=== PATIENT | female | born 1935 | race Two or more races ===

== ENCOUNTER 2022-01-27 13:53 | Inpatient (IN) | payer MEDICARE ==
[~2022-01-27] VITALS: Ht 157.5 cm; Wt 71.9 kg
[~2022-01-27 13:53] MED LIST: ACET650S24 PO; ALPR-707 PO; CEFX2I IV; DEXA4 PO; FURO40 PO; INSU100V SQ; METO25XL PO; MULT-1239 PO; WARF1TAB9 PO
[2022-01-27 14:24] LABS: BASOPHILS % (AUTO) 1.4 % (0.0-2.0); EOSINOPHILS % (AUTO) 0.9 % (1.0-6.0); HEMATOCRIT 35.8 % (36-46); HEMOGLOBIN 11.5 g/dL (12.0-16.0); LYMPHOCYTES # (AUTO) 1.4 K/uL (1.0-4.8); LYMPHOCYTES % (AUTO) 10.8 % (22.0-44.0); MEAN CORPUSCULAR HEMOGLOBIN 27.2 pg (26.0-34.0); MEAN CORPUSCULAR VOLUME 85 fL (80-100); MONOCYTES # (AUTO) 1.3 K/uL (0.1-1.0); MONOCYTES % (AUTO) 9.6 % (2.0-9.0); NEUTROPHILS # (AUTO) 10.1 K/uL (1.8-7.7); NEUTROPHILS % (AUTO) 77.3 % (40.0-70.0); RED BLOOD CELL COUNT(AUTO) 4.21 MIL/uL (4.00-5.20)
[2022-01-27 14:35] LABS: ALANINE AMINOTRANSFERASE 22 U/L (12-78); ALKALINE PHOSPHATASE 152 U/L (46-116); ANION GAP 1 mmol/L (8-16); ASPARTATE AMINOTRANSFERASE 21 U/L (15-37); BILIRUBIN,TOTAL 0.7 mg/dL (0.1-1.0); CALCIUM, TOTAL 8.2 mg/dL (8.8-10.5); CARBON DIOXIDE 34 mmol/L (22-29); CHLORIDE 101 mmol/L (98-107); CREATININE 0.57 mg/dL (0.60-1.30); GLUCOSE,RANDOM 143 mg/dL (70-110); SODIUM SERUM 136 mmol/L (136-145); UREA NITROGEN, BLOOD 19 mg/dL (7-18)
[2022-01-27 14:38] LABS: GLOMERULAR FILTR. RATE CALC > 60 mL/min (>60); POTASSIUM 2.6 mmol/L (3.5-5.1)
[2022-01-27 14:40] LABS: INR 3.1 (0.9-1.1); PROTHROMBIN TIME 31.8 SEC (9.4-11.6)
[2022-01-27 14:44] LABS: PLATELET COUNT (AUTO) 83 K/uL (150-450)
[2022-01-27] MEDS ORDERED: ASPIRIN 81 MG CHEWABLE TABLET PO ONE (15:00)
[2022-01-27] MEDS ORDERED: ASPIRIN 300 MG RECTAL SUPPOSITORY PR ONE (15:30)
[2022-01-27 15:32] LABS: APPEARANCE,URINE HAZY (CLEAR); BILIRUBIN,URINE NEGATIVE (NEGATIVE); GLUCOSE, URINE (UA) NEGATIVE (NEGATIVE); KETONES,URINE NEGATIVE (NEGATIVE); LEUKOCYTE ESTERASE ,URINE LARGE (NEGATIVE); NITRATE,URINE NEGATIVE (NEGATIVE); OCCULT BLOOD,URINE TRACE (NEGATIVE); PH,URINE 6.5 (5.0-8.0); PROTEIN,URINE TRACE mg/dL (NEGATIVE); SPECIFIC GRAVITIY, URINE 1.027 (1.003-1.030); UROBILINOGEN,URINE <=1.0 mg/dL (<=1.0)
[2022-01-27] MEDS: POTASSIUM CHL 10 MEQ/WATER 50 ML IV SCH ×2 (15:36→16:10)
[2022-01-27] MEDS ORDERED: 0.9% SODIUM CHLORIDE 10 ML SYRINGE IVP PRN (15:45)
[2022-01-27] MEDS ORDERED: ACETAMINOPHEN 325 MG TABLET PO PRN ×2 (15:45→19:30)
[2022-01-27] MEDS ORDERED: ONDANSETRON HCL 4 MG/2 ML VIAL IVP PRN ×2 (15:45→19:30)
[2022-01-27 15:47] LABS: BACTERIA,URINE Moderate /HPF (None Seen); RBC,URINE 0-2 /HPF (0-2); SQUAMOUS EPITHELIAL CELL,UR Rare /LPF (None Seen); WBC,URINE 51-100 /HPF (0-5); YEAST,URINE Moderate /HPF (None Seen)
[2022-01-27] MEDS ORDERED: MAGNESIUM SULFATE 2 GM/WATER 50 ML IV ONE (16:00)
[2022-01-27] MEDS ORDERED: PIPERACILLIN/TAZO 3.375 GM/D5W 50 ML IV SCH (16:00)
[2022-01-27 16:10] LABS: AMPHET/METH SCREEN,URINE NEGATIVE (NEGATIVE); BARBITURATE SCREEN, URINE NEGATIVE (NEGATIVE); BENZODIAZEPINES SCREEN,URINE NEGATIVE (NEGATIVE); CANNABINOID SCREEN,URINE NEGATIVE (NEGATIVE); COCAINE SCREEN,URINE NEGATIVE (NEGATIVE); METHADONE SCREEN, URINE NEGATIVE (NEGATIVE); PHENCYCLIDINE SCREEN,URINE NEGATIVE (NEGATIVE)
[2022-01-27 16:11] LABS: OPIATE SCREEN,URINE NEGATIVE (NEGATIVE)
[2022-01-27 16:41] LABS: COVID AG,FIA SOURCE NASOPHARYNGEAL
[2022-01-27 17:27] LABS: INFLUENZA TYPE A NEGATIVE FOR TYPE A (NEGATIVE); INFLUENZA TYPE B NEGATIVE FOR TYPE B (NEGATIVE)
[2022-01-27] MEDS ORDERED: BISACODYL 10 MG RECTAL RECTAL SUPPOSITORY PR PRN (19:30)
[2022-01-27] MEDS ORDERED: MAGNESIUM HYDROXIDE SUSPENSION 30 ML UDCUP PO PRN (19:30)
[2022-01-27] MEDS ORDERED: ZOLPIDEM TARTRATE 5 MG TABLET PO PRN (19:30)
[2022-01-27] MEDS ORDERED: DEXTROSE 50%-WATER 25 GM/50 ML SYRINGE IVP PRN (19:45)
[2022-01-27 20:46] VITALS: BP 137/57
[2022-01-27] MEDS: DOCUSATE SODIUM 100 MG CAPSULE PO SCH (21:00)
[2022-01-27] MEDS: FUROSEMIDE 40 MG TABLET PO SCH (21:00)
[2022-01-27] MEDS: METOPROLOL SUCCINATE 25 MG ER TABLET PO SCH (21:00)
[2022-01-27] MEDS: CefTRIAXone 1 GM/DEXTROSE 50 ML IV SCH (22:28)
[2022-01-28] MEDS ORDERED: HEPARIN SODIUM,PORCINE 5,000 UNITS/ML VIAL SQ SCH
[2022-01-28 00:11] VITALS: BP 123/73
[2022-01-28] MEDS ORDERED: DIGOXIN 250 MCG/ML 2 ML AMP IVP ONE (00:30)
[2022-01-28 00:37] LABS: GLUCOMETER DEV NAME(LOC) 5N.1C; GLUCOSE,POINT OF CARE 89 MG/DL (70-110)
[2022-01-28 05:17] VITALS: BP 118/54
[2022-01-28 06:27] LABS: ANION GAP 4 mmol/L (8-16); CALCIUM, TOTAL 8.6 mg/dL (8.8-10.5); CARBON DIOXIDE 32 mmol/L (22-29); CHLORIDE 103 mmol/L (98-107); CREATININE 0.62 mg/dL (0.60-1.30); GLUCOSE,RANDOM 178 mg/dL (70-110); INR 2.8 (0.9-1.1); POTASSIUM 3.7 mmol/L (3.5-5.1); PROTHROMBIN TIME 28.2 SEC (9.4-11.6); SODIUM SERUM 139 mmol/L (136-145); UREA NITROGEN, BLOOD 21 mg/dL (7-18)
[2022-01-28 06:31] LABS: GLOMERULAR FILTR. RATE CALC > 60 mL/min (>60)
[2022-01-28 07:08] LABS: BASOPHILS % (AUTO) 0.4 % (0.0-2.0); EOSINOPHILS % (AUTO) 0.8 % (1.0-6.0); HEMATOCRIT 36.1 % (36-46); LYMPHOCYTES # (AUTO) 1.5 K/uL (1.0-4.8); LYMPHOCYTES % (AUTO) 14.5 % (22.0-44.0); MEAN CORPUSCULAR HEMOGLOBIN 28.3 pg (26.0-34.0); MEAN CORPUSCULAR HGB CONC 33.3 G/dL (31.0-37.0); MEAN CORPUSCULAR VOLUME 85 fL (80-100); MONOCYTES # (AUTO) 0.8 K/uL (0.1-1.0); MONOCYTES % (AUTO) 7.6 % (2.0-9.0); NEUTROPHILS # (AUTO) 7.8 K/uL (1.8-7.7); NEUTROPHILS % (AUTO) 76.7 % (40.0-70.0); PLATELET COUNT (AUTO) 91 K/uL (150-450); RED BLOOD CELL COUNT(AUTO) 4.25 MIL/uL (4.00-5.20); RED CELL DISTRIBUTION WIDTH 21.9 % (11.5-14.5)
[2022-01-28 07:34] LABS: CHOL/HDL RATIO 2.7 (3.9-5.7); CHOLESTEROL 103 mg/dL (131-200); HDL CHOLESTEROL 38 mg/dL (40-60); LDL CHOL (CALC.) 53 mg/dL (0-130); TRIGLYCERIDES 58 mg/dL (15-150)
[2022-01-28 07:57] VITALS: BP 124/57
[2022-01-28] MEDS: FUROSEMIDE 40 MG TABLET PO SCH ×2 (08:40→21:50)
[2022-01-28] MEDS: DOCUSATE SODIUM 100 MG CAPSULE PO SCH ×2 (08:40→21:50)
[2022-01-28] MEDS: METOPROLOL SUCCINATE 25 MG ER TABLET PO SCH ×2 (08:40→21:50)
[2022-01-28] MEDS: PANTOPRAZOLE SODIUM 40 MG DR TABLET PO SCH (08:40)
[2022-01-28] MEDS: INSULIN LISPRO 100 UNITS/ML SQ PRN ×3 (11:50→22:00)
[2022-01-28 11:52] VITALS: BP 137/59
[2022-01-28 11:56] LABS: GLUCOMETER DEV NAME(LOC) 5N.1C; GLUCOSE,POINT OF CARE 385 MG/DL (70-110)
[2022-01-28 15:50] VITALS: BP 134/60
[2022-01-28] MEDS: WARFARIN SODIUM 1 MG TABLET PO SCH (17:10)
[2022-01-28 17:32] LABS: GLUCOMETER DEV NAME(LOC) 5N.1C; GLUCOSE,POINT OF CARE 347 MG/DL (70-110)
[2022-01-28 20:07] LABS: GLUCOMETER DEV NAME(LOC) 5S.1B; GLUCOSE,POINT OF CARE 161 MG/DL (70-110)
[2022-01-28 21:34] VITALS: BP 131/69
[2022-01-28] MEDS: CefTRIAXone 1 GM/DEXTROSE 50 ML IV SCH (21:49)
[2022-01-29 01:54] VITALS: BP 141/68
[2022-01-29 02:16] LABS: GLUCOMETER DEV NAME(LOC) 5S.1B; GLUCOSE,POINT OF CARE 252 MG/DL (70-110)
[2022-01-29] MEDS ORDERED: ALPRAZolam 0.5 MG TABLET PO PRN (03:45)
[2022-01-29] MEDS: INSULIN LISPRO 100 UNITS/ML SQ PRN ×4 (06:17→20:51)
[2022-01-29 06:59] LABS: BASOPHILS % (AUTO) 0.8 % (0.0-2.0); EOSINOPHILS % (AUTO) 1.5 % (1.0-6.0); HEMATOCRIT 33.3 % (36-46); HEMOGLOBIN 11.1 g/dL (12.0-16.0); LYMPHOCYTES # (AUTO) 1.5 K/uL (1.0-4.8); LYMPHOCYTES % (AUTO) 15.2 % (22.0-44.0); MEAN CORPUSCULAR HEMOGLOBIN 28.2 pg (26.0-34.0); MEAN CORPUSCULAR HGB CONC 33.3 G/dL (31.0-37.0); MEAN CORPUSCULAR VOLUME 85 fL (80-100); MONOCYTES # (AUTO) 0.7 K/uL (0.1-1.0); MONOCYTES % (AUTO) 6.5 % (2.0-9.0); NEUTROPHILS # (AUTO) 7.7 K/uL (1.8-7.7); PLATELET COUNT (AUTO) 97 K/uL (150-450); RED BLOOD CELL COUNT(AUTO) 3.93 MIL/uL (4.00-5.20); RED CELL DISTRIBUTION WIDTH 21.1 % (11.5-14.5)
[2022-01-29 07:08] LABS: INR 2.9 (0.9-1.1); PROTHROMBIN TIME 29.6 SEC (9.4-11.6)
[2022-01-29 07:15] LABS: ANION GAP 3 mmol/L (8-16); CALCIUM, TOTAL 8.4 mg/dL (8.8-10.5); CARBON DIOXIDE 31 mmol/L (22-29); CHLORIDE 98 mmol/L (98-107); CREATININE 0.63 mg/dL (0.60-1.30); GLUCOSE,RANDOM 265 mg/dL (70-110); POTASSIUM 3.7 mmol/L (3.5-5.1); SODIUM SERUM 132 mmol/L (136-145); UREA NITROGEN, BLOOD 21 mg/dL (7-18)
[2022-01-29 07:20] LABS: GLOMERULAR FILTR. RATE CALC > 60 mL/min (>60)
[2022-01-29 08:09] VITALS: BP 132/64
[2022-01-29] MEDS: PANTOPRAZOLE SODIUM 40 MG DR TABLET PO SCH (09:32)
[2022-01-29] MEDS: METOPROLOL SUCCINATE 25 MG ER TABLET PO SCH ×2 (09:32→20:40)
[2022-01-29] MEDS: DOCUSATE SODIUM 100 MG CAPSULE PO SCH ×2 (09:32→20:40)
[2022-01-29] MEDS: FUROSEMIDE 40 MG TABLET PO SCH ×2 (09:32→20:40)
[2022-01-29 11:19] VITALS: BP 130/66
[2022-01-29 12:17] LABS: GLUCOMETER DEV NAME(LOC) 5S.2B; GLUCOSE,POINT OF CARE 275 MG/DL (70-110)
[2022-01-29 13:01] LABS: GLUCOMETER DEV NAME(LOC) 5N.1C; GLUCOSE,POINT OF CARE 285 MG/DL (70-110)
[2022-01-29] MEDS: WARFARIN SODIUM 1 MG TABLET PO SCH (16:25)
[2022-01-29 20:25] VITALS: BP 134/67
[2022-01-29] MEDS: CefTRIAXone 1 GM/DEXTROSE 50 ML IV SCH (20:40)
[2022-01-29] MEDS ORDERED: SODIUM CHLORIDE 0.9% 250 ML IV ONE (21:00)
[2022-01-30] VITALS (7 sets, daily range): BP systolic 114–131; BP diastolic 55–67
[2022-01-30 05:41] LABS: GLUCOMETER DEV NAME(LOC) 5N.1C; GLUCOSE,POINT OF CARE 270 MG/DL (70-110)
[2022-01-30 05:41] LABS: GLUCOMETER DEV NAME(LOC) 5N.1C; GLUCOSE,POINT OF CARE 253 MG/DL (70-110)
[2022-01-30 05:56] LABS: BASOPHILS % (AUTO) 0.8 % (0.0-2.0); EOSINOPHILS % (AUTO) 1.8 % (1.0-6.0); HEMATOCRIT 33.1 % (36-46); LYMPHOCYTES # (AUTO) 1.1 K/uL (1.0-4.8); LYMPHOCYTES % (AUTO) 12.7 % (22.0-44.0); MEAN CORPUSCULAR HEMOGLOBIN 28.2 pg (26.0-34.0); MEAN CORPUSCULAR HGB CONC 33.4 G/dL (31.0-37.0); MEAN CORPUSCULAR VOLUME 84 fL (80-100); MONOCYTES # (AUTO) 0.5 K/uL (0.1-1.0); MONOCYTES % (AUTO) 5.6 % (2.0-9.0); NEUTROPHILS # (AUTO) 7.1 K/uL (1.8-7.7); NEUTROPHILS % (AUTO) 79.1 % (40.0-70.0); PLATELET COUNT (AUTO) 119 K/uL (150-450); RED BLOOD CELL COUNT(AUTO) 3.92 MIL/uL (4.00-5.20); RED CELL DISTRIBUTION WIDTH 20.9 % (11.5-14.5)
[2022-01-30] MEDS: INSULIN LISPRO 100 UNITS/ML SQ PRN ×4 (06:02→20:56)
[2022-01-30 06:07] LABS: INR 2.9 (0.9-1.1); PROTHROMBIN TIME 29.8 SEC (9.4-11.6)
[2022-01-30 06:10] LABS: ANION GAP 4 mmol/L (8-16); CALCIUM, TOTAL 8.4 mg/dL (8.8-10.5); CARBON DIOXIDE 31 mmol/L (22-29); CHLORIDE 99 mmol/L (98-107); CREATININE 0.62 mg/dL (0.60-1.30); GLUCOSE,RANDOM 264 mg/dL (70-110); POTASSIUM 3.1 mmol/L (3.5-5.1); SODIUM SERUM 134 mmol/L (136-145); UREA NITROGEN, BLOOD 21 mg/dL (7-18)
[2022-01-30 06:13] LABS: GLOMERULAR FILTR. RATE CALC > 60 mL/min (>60)
[2022-01-30 07:21] LABS: GLUCOMETER DEV NAME(LOC) 5N.1C; GLUCOSE,POINT OF CARE 242 MG/DL (70-110)
[2022-01-30] MEDS: FUROSEMIDE 40 MG TABLET PO SCH ×2 (08:53→20:50)
[2022-01-30] MEDS: DOCUSATE SODIUM 100 MG CAPSULE PO SCH ×2 (08:54→20:51)
[2022-01-30] MEDS: PANTOPRAZOLE SODIUM 40 MG DR TABLET PO SCH (08:54)
[2022-01-30] MEDS: METOPROLOL SUCCINATE 25 MG ER TABLET PO SCH ×2 (08:54→20:50)
[2022-01-30] MEDS ORDERED: POTASSIUM CHLORIDE 10% 40 MEQ/30 ML LIQUID UDCUP PO ONE (11:45)
[2022-01-30] MEDS ORDERED: MAGNESIUM OXIDE 400 MG TABLET PO ONE ×2 (11:45→17:15)
[2022-01-30 15:05] LABS: MAGNESIUM 1.2 mg/dL (1.80-2.40); POTASSIUM 4.5 mmol/L (3.5-5.1)
[2022-01-30] MEDS: WARFARIN SODIUM 1 MG TABLET PO SCH (18:20)
[2022-01-30] MEDS: CefTRIAXone 1 GM/DEXTROSE 50 ML IV SCH (20:51)
[2022-01-31] MEDS: INSULIN LISPRO 100 UNITS/ML SQ PRN ×2 (06:16→12:38)
[2022-01-31 06:32] VITALS: BP 150/69
[2022-01-31] MEDS ORDERED: MAGNESIUM OXIDE 400 MG TABLET PO ONE (07:45)
[2022-01-31 08:13] VITALS: BP 128/48
[2022-01-31] MEDS: METOPROLOL SUCCINATE 25 MG ER TABLET PO SCH (09:19)
[2022-01-31] MEDS: PANTOPRAZOLE SODIUM 40 MG DR TABLET PO SCH (09:19)
[2022-01-31] MEDS: FUROSEMIDE 40 MG TABLET PO SCH (09:19)
[2022-01-31] MEDS: DOCUSATE SODIUM 100 MG CAPSULE PO SCH (09:20)
[2022-01-31 11:29] VITALS: BP 132/52
[2022-01-31 15:13] VITALS: BP 126/55
[2022-01-31 15:35] LABS: COVID AG,FIA SOURCE NASOPHARYNGEAL
[2022-01-31] MEDS: WARFARIN SODIUM 1 MG TABLET PO SCH (16:24)
[2022-01-31 19:41] LABS: GLUCOMETER DEV NAME(LOC) 5N.1C; GLUCOSE,POINT OF CARE 234 MG/DL (70-110)
[2022-01-31 19:41] LABS: GLUCOMETER DEV NAME(LOC) 5N.1C; GLUCOSE,POINT OF CARE 261 MG/DL (70-110)
[2022-01-31 19:41] LABS: GLUCOMETER DEV NAME(LOC) 5N.1C; GLUCOSE,POINT OF CARE 291 MG/DL (70-110)
[2022-01-31 19:42] LABS: GLUCOMETER DEV NAME(LOC) 5N.1C; GLUCOSE,POINT OF CARE 321 MG/DL (70-110)
[2022-01-31 19:42] LABS: GLUCOMETER DEV NAME(LOC) 5N.1C; GLUCOSE,POINT OF CARE 192 MG/DL (70-110)
== END 2022-01-31 16:55 | DRG 70 ==
LOC: EMS 13:54 → 5N 18:18
PROVIDERS: ADMIT Internal Medicine; ATTEND Internal Medicine
DX: G93.41 Metabolic encephalopathy (principal); E43 Unspecified severe protein-calorie malnutrition; U07.1 COVID-19; I50.32 Chronic diastolic (congestive) heart failure; N39.0 Urinary tract infection, site not specified; R78.81 Bacteremia; E87.6 Hypokalemia; E11.9 Type 2 diabetes mellitus without complications; F41.9 Anxiety disorder, unspecified; I48.91 Unspecified atrial fibrillation; E83.42 Hypomagnesemia; Z66 Do not resuscitate; F29 Unspecified psychosis not due to a substance or known physiological condition; J44.9 Chronic obstructive pulmonary disease, unspecified; T38.0X5A Adverse effect of glucocorticoids and synthetic analogues, initial encounter; F32.A Depression, unspecified; Z95.3 Presence of xenogenic heart valve; Z86.73 Personal history of transient ischemic attack (TIA), and cerebral infarction without residual deficits; Z68.29 Body mass index [BMI] 29.0-29.9, adult; Z79.01 Long term (current) use of anticoagulants; Y92.89 Other specified places as the place of occurrence of the external cause; Z79.899 Other long term (current) drug therapy; Z88.5 Allergy status to narcotic agent; Z88.8 Allergy status to other drugs, medicaments and biological substances; M25.461 Effusion, right knee; M17.11 Unilateral primary osteoarthritis, right knee
CPT/HCPCS: 70496; 70498; 71045; 80048; 80053; 80061; 81001; 82948; 82962; 83735; 84132; 84484; 85025; 85610; 85730; 86850; 86900; 86901; 87040; 87081; 87086; 87186; 87804; 92610; 93005; 97110; 97163; 97530; 99291; J0696; J1160; J2543; J3475; J3480; J7050; 36415-L1; 36415-TC; 70450; 70450-TC

== ENCOUNTER 2022-02-19 20:03 | Inpatient (IN) | payer MEDICARE ==
[~2022-02-19] VITALS: Ht 149.9 cm; Wt 49.2 kg
[2022-02-19] MEDS ORDERED: SODIUM CHLORIDE 0.9% 1,000 ML IV ONE (22:45)
[2022-02-19 23:54] LABS: HEMOGLOBIN 11.2 g/dL (12.0-16.0); MONOCYTES # (AUTO) 0.9 K/uL (0.1-1.0); MONOCYTES % (AUTO) 5.8 % (2.0-9.0)
[2022-02-19 23:56] LABS: ANION GAP 9 mmol/L (8-16); CALCIUM, TOTAL 8.9 mg/dL (8.8-10.5); CARBON DIOXIDE 31 mmol/L (22-29); CHLORIDE 98 mmol/L (98-107); GLUCOSE,RANDOM 306 mg/dL (70-110); POTASSIUM 3.1 mmol/L (3.5-5.1); SODIUM SERUM 138 mmol/L (136-145); UREA NITROGEN, BLOOD 19 mg/dL (7-18)
[2022-02-19 23:58] LABS: GLOMERULAR FILTR. RATE CALC > 60 mL/min (>60)
[2022-02-20] LABS: BASOPHILS % (AUTO) 0.4 % (0.0-2.0); EOSINOPHILS % (AUTO) 0.2 % (1.0-6.0); HEMATOCRIT 35.7 % (36-46); LYMPHOCYTES % (AUTO) 6.3 % (22.0-44.0); MEAN CORPUSCULAR HEMOGLOBIN 26.5 pg (26.0-34.0); MEAN CORPUSCULAR HGB CONC 31.4 G/dL (31.0-37.0); MEAN CORPUSCULAR VOLUME 84 fL (80-100); NEUTROPHILS # (AUTO) 13.2 K/uL (1.8-7.7); PLATELET COUNT (AUTO) 278 K/uL (150-450); RED BLOOD CELL COUNT(AUTO) 4.23 MIL/uL (4.00-5.20); RED CELL DISTRIBUTION WIDTH 18.3 % (11.5-14.5)
[2022-02-20] MEDS ORDERED: ONDANSETRON HCL 4 MG/2 ML VIAL IVP PRN
[2022-02-20 00:02] LABS: ALANINE AMINOTRANSFERASE 12 U/L (12-78); ALBUMIN 2.6 g/dL (3.4-5.0); ALKALINE PHOSPHATASE 149 U/L (46-116); ASPARTATE AMINOTRANSFERASE 21 U/L (15-37); BILIRUBIN,TOTAL 0.4 mg/dL (0.1-1.0); LIPASE 222 U/L (73-393); TOTAL PROTEIN, SERUM 6.9 g/dL (6.4-8.2)
[2022-02-20 00:04] LABS: LACTIC ACID 1.4 mmol/L (0.4-2.0)
[2022-02-20] MEDS: HEPARIN SODIUM,PORCINE 5,000 UNITS/ML VIAL SQ SCH ×3 (00:05→15:49)
[2022-02-20 00:07] LABS: NEUTROPHILS % (AUTO) 87.3 % (40.0-70.0)
[2022-02-20 00:17] LABS: B-TYPE NATRIURETIC PEPTIDE 644 pg/mL (0-100)
[2022-02-20] MEDS ORDERED: SODIUM CHLORIDE 0.9% 250 ML IV ONE (01:00)
[2022-02-20 01:04] LABS: COVID AG,FIA SOURCE NASOPHARYNGEAL
[2022-02-20 01:25] LABS: INR 2.5 (0.9-1.1)
[2022-02-20] MEDS ORDERED: LORazepam 2 MG/ML VIAL IVP ONE (01:45)
[2022-02-20] MEDS ORDERED: CefTRIAXone SODIUM 2 GM in DEXTROSE 5%-WATER 50 ML IV SCH (02:00)
[2022-02-20] MEDS ORDERED: IOHEXOL 350 MG/ML 100 ML VIAL ONE (02:32)
[2022-02-20 02:38] LABS: APPEARANCE,URINE CLEAR (CLEAR); BILIRUBIN,URINE NEGATIVE (NEGATIVE); GLUCOSE, URINE (UA) >=1000 mg/dL (NEGATIVE); KETONES,URINE TRACE mg/dL (NEGATIVE); LEUKOCYTE ESTERASE ,URINE LARGE (NEGATIVE); NITRATE,URINE NEGATIVE (NEGATIVE); OCCULT BLOOD,URINE NEGATIVE (NEGATIVE); PROTEIN,URINE NEGATIVE (NEGATIVE); SPECIFIC GRAVITIY, URINE 1.012 (1.003-1.030); UROBILINOGEN,URINE <=1.0 mg/dL (<=1.0)
[2022-02-20 02:52] LABS: BACTERIA,URINE Few /HPF (None Seen); RBC,URINE 0-2 /HPF (0-2); WBC,URINE 26-50 /HPF (0-5); YEAST,URINE Few /HPF (None Seen)
[2022-02-20 02:53] LABS: SQUAMOUS EPITHELIAL CELL,UR Few /LPF (None Seen)
[2022-02-20] MEDS: POTASSIUM CHL 10 MEQ/WATER 50 ML IV SCH ×3 (04:26→06:30)
[2022-02-20 06:17] LABS: INR 2.3 (0.9-1.1)
[2022-02-20] MEDS ORDERED: *CLINICAL-MEROPENEM DOSING CLINICAL ONE (06:45)
[2022-02-20] MEDS ORDERED: HALOPERIDOL LACTATE 5 MG/ML VIAL IM ONE (06:45)
[2022-02-20] MEDS: MEROPENEM 1 GM in SODIUM CHLORIDE 0.9% 100 ML IV SCH ×2 (08:07→19:31)
[2022-02-20] MEDS: MULTIVITAMINS WITH MINERALS, THERAPEUTIC TABLET PO SCH (08:13)
[2022-02-20] MEDS ORDERED: CefTRIAXone SODIUM 2 GM/VIAL IV SCH (09:00)
[2022-02-20] MEDS ORDERED: FUROSEMIDE 40 MG TABLET PO SCH (09:00)
[2022-02-20] MEDS: METOPROLOL SUCCINATE 25 MG ER TABLET PO SCH ×2 (09:00→22:01)
[2022-02-20] MEDS: INSULIN LISPRO 100 UNITS/ML SQ PRN ×2 (12:55→17:56)
[2022-02-20] MEDS ORDERED: DEXTROSE 50%-WATER 25 GM/50 ML SYRINGE IVP PRN (13:00)
[2022-02-20 13:16] LABS: GLUCOMETER DEV NAME(LOC) ERT.5; GLUCOSE,POINT OF CARE 354 MG/DL (70-110)
[2022-02-20] MEDS: ALPRAZolam 0.5 MG TABLET PO PRN (15:49)
[2022-02-20] MEDS: WARFARIN SODIUM 1 MG TABLET PO SCH (16:29)
[2022-02-20 17:51] LABS: GLUCOMETER DEV NAME(LOC) ERT.5; GLUCOSE,POINT OF CARE 242 MG/DL (70-110)
[2022-02-20] MEDS: FUROSEMIDE 20 MG/2 ML VIAL IVP SCH (22:00)
[2022-02-20 23:15] VITALS: BP 141/66
[2022-02-21] MEDS: ALPRAZolam 0.5 MG TABLET PO PRN ×2 (00:23→17:12)
[2022-02-21] MEDS: HEPARIN SODIUM,PORCINE 5,000 UNITS/ML VIAL SQ SCH ×3 (00:23→17:03)
[2022-02-21 04:00] VITALS: BP 125/54
[2022-02-21] MEDS: INSULIN LISPRO 100 UNITS/ML SQ PRN ×3 (06:14→17:25)
[2022-02-21 06:48] LABS: BASOPHILS % (AUTO) 1.2 % (0.0-2.0); EOSINOPHILS % (AUTO) 0.8 % (1.0-6.0); HEMATOCRIT 34.3 % (36-46); HEMOGLOBIN 10.9 g/dL (12.0-16.0); LYMPHOCYTES # (AUTO) 1.4 K/uL (1.0-4.8); LYMPHOCYTES % (AUTO) 10.3 % (22.0-44.0); MEAN CORPUSCULAR HEMOGLOBIN 27.2 pg (26.0-34.0); MEAN CORPUSCULAR HGB CONC 31.8 G/dL (31.0-37.0); MEAN CORPUSCULAR VOLUME 85 fL (80-100); MONOCYTES # (AUTO) 0.9 K/uL (0.1-1.0); MONOCYTES % (AUTO) 6.4 % (2.0-9.0); NEUTROPHILS # (AUTO) 11.2 K/uL (1.8-7.7); NEUTROPHILS % (AUTO) 81.3 % (40.0-70.0); PLATELET COUNT (AUTO) 351 K/uL (150-450); RED BLOOD CELL COUNT(AUTO) 4.03 MIL/uL (4.00-5.20); RED CELL DISTRIBUTION WIDTH 18.5 % (11.5-14.5)
[2022-02-21 06:57] LABS: ANION GAP 10 mmol/L (8-16); CALCIUM, TOTAL 8.9 mg/dL (8.8-10.5); CARBON DIOXIDE 30 mmol/L (22-29); CHLORIDE 102 mmol/L (98-107); CREATININE 0.61 mg/dL (0.60-1.30); GLUCOSE,RANDOM 186 mg/dL (70-110); POTASSIUM 3.2 mmol/L (3.5-5.1); SODIUM SERUM 142 mmol/L (136-145); UREA NITROGEN, BLOOD 14 mg/dL (7-18)
[2022-02-21 06:59] LABS: GLOMERULAR FILTR. RATE CALC > 60 mL/min (>60)
[2022-02-21 07:07] VITALS: BP 120/58
[2022-02-21 07:17] LABS: INR 2.2 (0.9-1.1); PROTHROMBIN TIME 22.8 SEC (9.4-11.6)
[2022-02-21] MEDS: MEROPENEM 1 GM in SODIUM CHLORIDE 0.9% 100 ML IV SCH ×2 (08:33→20:22)
[2022-02-21] MEDS: METOPROLOL SUCCINATE 25 MG ER TABLET PO SCH ×2 (08:33→20:57)
[2022-02-21] MEDS: FUROSEMIDE 20 MG/2 ML VIAL IVP SCH ×2 (08:33→20:22)
[2022-02-21] MEDS: MULTIVITAMINS WITH MINERALS, THERAPEUTIC TABLET PO SCH (08:33)
[2022-02-21] MEDS ORDERED: SODIUM CHLORIDE 0.9% 500 ML IV ONE (08:38)
[2022-02-21] MEDS ORDERED: AMIODARONE HCL 150 MG in DEXTROSE 5%-WATER 97 ML IV ONE (10:00)
[2022-02-21] MEDS ORDERED: AMIODARONE HCL 360 MG in DEXTROSE 5%-WATER 242.8 ML IV ONE (10:00)
[2022-02-21 11:40] VITALS: BP_SYST 118; BP_SYST 123; BP_DIAS 67; BP_DIAS 69
[2022-02-21 15:00] VITALS: BP 144/79
[2022-02-21] MEDS ORDERED: AMIODARONE HCL 540 MG in DEXTROSE 5%-WATER 239.2 ML IV ONE (16:00)
[2022-02-21] MEDS: WARFARIN SODIUM 1 MG TABLET PO SCH (17:04)
[2022-02-21] MEDS: ACETAMINOPHEN 325 MG TABLET PO PRN (17:06)
[2022-02-21 20:00] VITALS: BP 104/63
[2022-02-22] MEDS: HEPARIN SODIUM,PORCINE 5,000 UNITS/ML VIAL SQ SCH ×4 (00:13→23:32)
[2022-02-22 00:41] VITALS: BP 100/52
[2022-02-22 01:36] LABS: GLUCOMETER DEV NAME(LOC) 5S.1B; GLUCOSE,POINT OF CARE 152 MG/DL (70-110)
[2022-02-22 01:36] LABS: GLUCOMETER DEV NAME(LOC) 5S.1B; GLUCOSE,POINT OF CARE 132 MG/DL (70-110)
[2022-02-22 01:36] LABS: GLUCOMETER DEV NAME(LOC) 5S.1B; GLUCOSE,POINT OF CARE 208 MG/DL (70-110)
[2022-02-22 01:36] LABS: GLUCOMETER DEV NAME(LOC) 5S.1B; GLUCOSE,POINT OF CARE 177 MG/DL (70-110)
[2022-02-22 01:36] LABS: GLUCOMETER DEV NAME(LOC) 5S.1B; GLUCOSE,POINT OF CARE 300 MG/DL (70-110)
[2022-02-22 04:28] VITALS: BP 117/55
[2022-02-22 06:30] LABS: BASOPHILS % (AUTO) 1.2 % (0.0-2.0); EOSINOPHILS % (AUTO) 1.7 % (1.0-6.0); HEMATOCRIT 37.6 % (36-46); HEMOGLOBIN 11.9 g/dL (12.0-16.0); LYMPHOCYTES # (AUTO) 1.4 K/uL (1.0-4.8); LYMPHOCYTES % (AUTO) 13.5 % (22.0-44.0); MEAN CORPUSCULAR HEMOGLOBIN 26.9 pg (26.0-34.0); MEAN CORPUSCULAR HGB CONC 31.6 G/dL (31.0-37.0); MEAN CORPUSCULAR VOLUME 85 fL (80-100); MONOCYTES # (AUTO) 0.7 K/uL (0.1-1.0); MONOCYTES % (AUTO) 6.7 % (2.0-9.0); NEUTROPHILS # (AUTO) 8.2 K/uL (1.8-7.7); NEUTROPHILS % (AUTO) 76.9 % (40.0-70.0); PLATELET COUNT (AUTO) 331 K/uL (150-450); RED CELL DISTRIBUTION WIDTH 18.7 % (11.5-14.5)
[2022-02-22 06:36] LABS: INR 2.7 (0.9-1.1); PROTHROMBIN TIME 27.8 SEC (9.4-11.6)
[2022-02-22] MEDS: INSULIN LISPRO 100 UNITS/ML SQ PRN ×4 (06:42→20:13)
[2022-02-22 06:48] LABS: ANION GAP 10 mmol/L (8-16); CARBON DIOXIDE 31 mmol/L (22-29); CHLORIDE 100 mmol/L (98-107); CREATININE 0.58 mg/dL (0.60-1.30); GLUCOSE,RANDOM 155 mg/dL (70-110); POTASSIUM 3.1 mmol/L (3.5-5.1); SODIUM SERUM 141 mmol/L (136-145); UREA NITROGEN, BLOOD 15 mg/dL (7-18)
[2022-02-22 07:12] VITALS: BP 159/65
[2022-02-22 07:31] LABS: GLOMERULAR FILTR. RATE CALC > 60 mL/min (>60)
[2022-02-22] MEDS: MULTIVITAMINS WITH MINERALS, THERAPEUTIC TABLET PO SCH (08:43)
[2022-02-22] MEDS: MEROPENEM 1 GM in SODIUM CHLORIDE 0.9% 100 ML IV SCH ×2 (08:43→19:56)
[2022-02-22] MEDS: METOPROLOL SUCCINATE 25 MG ER TABLET PO SCH ×2 (08:43→20:03)
[2022-02-22] MEDS: FUROSEMIDE 20 MG/2 ML VIAL IVP SCH (08:44)
[2022-02-22] MEDS ORDERED: POTASSIUM CHL 10 MEQ/WATER 50 ML IV PRN (08:45)
[2022-02-22] MEDS: FUROSEMIDE 40 MG TABLET PO SCH ×2 (09:00→20:02)
[2022-02-22] MEDS ORDERED: AMIODARONE HCL 750 MG in DEXTROSE 5%-WATER 485 ML IV SCH (10:00)
[2022-02-22] MEDS: POTASSIUM CHLORIDE 10% 40 MEQ/30 ML LIQUID UDCUP PO PRN (10:34)
[2022-02-22] MEDS: AMIODARONE HCL 200 MG TABLET PO SCH ×2 (10:34→20:03)
[2022-02-22 11:12] VITALS: BP 150/61
[2022-02-22 15:08] VITALS: BP 142/68
[2022-02-22] MEDS: WARFARIN SODIUM 1 MG TABLET PO SCH (17:39)
[2022-02-22 18:12] LABS: GLUCOMETER DEV NAME(LOC) 5S.1B; GLUCOSE,POINT OF CARE 163 MG/DL (70-110)
[2022-02-22 18:12] LABS: GLUCOMETER DEV NAME(LOC) 5S.1B; GLUCOSE,POINT OF CARE 191 MG/DL (70-110)
[2022-02-22] MEDS: ALPRAZolam 0.5 MG TABLET PO PRN (19:45)
[2022-02-22 20:29] VITALS: BP 150/65
[2022-02-23 00:11] VITALS: BP 110/64
[2022-02-23 04:57] VITALS: BP 145/81
[2022-02-23] MEDS: INSULIN LISPRO 100 UNITS/ML SQ PRN ×4 (06:35→20:25)
[2022-02-23 07:35] VITALS: BP 114/64
[2022-02-23 08:23] LABS: BASOPHILS % (AUTO) 0.9 % (0.0-2.0); CALCIUM, TOTAL 8.6 mg/dL (8.8-10.5); CREATININE 0.98 mg/dL (0.60-1.30); EOSINOPHILS % (AUTO) 0.4 % (1.0-6.0); HEMATOCRIT 33.6 % (36-46); HEMOGLOBIN 10.5 g/dL (12.0-16.0); LYMPHOCYTES # (AUTO) 1.7 K/uL (1.0-4.8); LYMPHOCYTES % (AUTO) 16.2 % (22.0-44.0); MEAN CORPUSCULAR HEMOGLOBIN 26.5 pg (26.0-34.0); MEAN CORPUSCULAR HGB CONC 31.3 G/dL (31.0-37.0); MEAN CORPUSCULAR VOLUME 85 fL (80-100); MONOCYTES # (AUTO) 0.6 K/uL (0.1-1.0); MONOCYTES % (AUTO) 5.3 % (2.0-9.0); NEUTROPHILS % (AUTO) 77.2 % (40.0-70.0); PLATELET COUNT (AUTO) 298 K/uL (150-450); RED BLOOD CELL COUNT(AUTO) 3.96 MIL/uL (4.00-5.20); RED CELL DISTRIBUTION WIDTH 18.5 % (11.5-14.5)
[2022-02-23 08:25] LABS: INR 3.5 (0.9-1.1); PROTHROMBIN TIME 34.9 SEC (9.4-11.6)
[2022-02-23] MEDS: HEPARIN SODIUM,PORCINE 5,000 UNITS/ML VIAL SQ SCH ×2 (08:29→17:02)
[2022-02-23] MEDS: MEROPENEM 1 GM in SODIUM CHLORIDE 0.9% 100 ML IV SCH ×2 (08:32→20:13)
[2022-02-23] MEDS: FUROSEMIDE 40 MG TABLET PO SCH ×2 (08:32→20:13)
[2022-02-23] MEDS: MULTIVITAMINS WITH MINERALS, THERAPEUTIC TABLET PO SCH (08:32)
[2022-02-23] MEDS: METOPROLOL SUCCINATE 25 MG ER TABLET PO SCH ×2 (08:32→20:13)
[2022-02-23] MEDS: AMIODARONE HCL 200 MG TABLET PO SCH ×2 (08:32→20:13)
[2022-02-23 11:10] VITALS: BP 94/57
[2022-02-23 16:10] VITALS: BP 102/57
[2022-02-23] MEDS: WARFARIN SODIUM 1 MG TABLET PO SCH (17:00)
[2022-02-23 17:46] LABS: GLUCOMETER DEV NAME(LOC) 5S.1B; GLUCOSE,POINT OF CARE 196 MG/DL (70-110)
[2022-02-23 17:46] LABS: GLUCOMETER DEV NAME(LOC) 5S.1B; GLUCOSE,POINT OF CARE 193 MG/DL (70-110)
[2022-02-23 20:11] LABS: GLUCOMETER DEV NAME(LOC) 5S.1B; GLUCOSE,POINT OF CARE 216 MG/DL (70-110)
[2022-02-23] MEDS: ALPRAZolam 0.5 MG TABLET PO PRN (20:13)
[2022-02-23 20:25] VITALS: BP 106/64
[2022-02-24] VITALS (7 sets, daily range): BP systolic 98–124; BP diastolic 44–58
[2022-02-24] MEDS: HEPARIN SODIUM,PORCINE 5,000 UNITS/ML VIAL SQ SCH ×4 (00:28→23:50)
[2022-02-24] MEDS ORDERED: FLUT1BLS8 IH (05:54)
[2022-02-24] MEDS ORDERED: DULO-113 PO (05:57)
[2022-02-24] MEDS ORDERED: CELE50CA PO (05:57)
[2022-02-24 06:31] LABS: GLUCOMETER DEV NAME(LOC) 5S.1B; GLUCOSE,POINT OF CARE 174 MG/DL (70-110)
[2022-02-24 07:50] LABS: INR 2.1 (0.9-1.1); PROTHROMBIN TIME 22.1 SEC (9.4-11.6)
[2022-02-24] MEDS: ALPRAZolam 0.5 MG TABLET PO PRN ×2 (08:47→20:26)
[2022-02-24] MEDS: AMIODARONE HCL 200 MG TABLET PO SCH ×2 (08:48→20:26)
[2022-02-24] MEDS: METOPROLOL SUCCINATE 25 MG ER TABLET PO SCH ×3 (08:48→20:26)
[2022-02-24] MEDS: MULTIVITAMINS WITH MINERALS, THERAPEUTIC TABLET PO SCH (08:48)
[2022-02-24] MEDS: FUROSEMIDE 40 MG TABLET PO SCH ×2 (08:49→20:26)
[2022-02-24] MEDS: MEROPENEM 1 GM in SODIUM CHLORIDE 0.9% 100 ML IV SCH ×2 (08:49→20:26)
[2022-02-24] MEDS: WARFARIN SODIUM 1 MG TABLET PO SCH (16:19)
[2022-02-24 17:16] LABS: GLUCOMETER DEV NAME(LOC) 5S.1B; GLUCOSE,POINT OF CARE 234 MG/DL (70-110)
[2022-02-24 19:56] LABS: GLUCOMETER DEV NAME(LOC) 5S.1B; GLUCOSE,POINT OF CARE 183 MG/DL (70-110)
[2022-02-24] MEDS: INSULIN LISPRO 100 UNITS/ML SQ PRN (20:41)
[2022-02-25 04:00] VITALS: BP 105/58
[2022-02-25 06:56] LABS: GLUCOMETER DEV NAME(LOC) 5S.2B; GLUCOSE,POINT OF CARE 140 MG/DL (70-110)
[2022-02-25] MEDS: MEROPENEM 1 GM in SODIUM CHLORIDE 0.9% 100 ML IV SCH ×2 (08:42→20:36)
[2022-02-25] MEDS: MULTIVITAMINS WITH MINERALS, THERAPEUTIC TABLET PO SCH (08:43)
[2022-02-25] MEDS: METOPROLOL SUCCINATE 25 MG ER TABLET PO SCH ×2 (08:43→20:37)
[2022-02-25] MEDS: AMIODARONE HCL 200 MG TABLET PO SCH ×2 (08:43→20:37)
[2022-02-25] MEDS: FUROSEMIDE 40 MG TABLET PO SCH ×2 (08:43→20:36)
[2022-02-25] MEDS: HEPARIN SODIUM,PORCINE 5,000 UNITS/ML VIAL SQ SCH ×2 (08:44→16:47)
[2022-02-25 09:46] VITALS: BP 150/69
[2022-02-25] MEDS: INSULIN LISPRO 100 UNITS/ML SQ PRN ×2 (11:43→20:50)
[2022-02-25 11:46] LABS: GLUCOMETER DEV NAME(LOC) 5S.1B; GLUCOSE,POINT OF CARE 370 MG/DL (70-110)
[2022-02-25 12:18] VITALS: BP 102/44
[2022-02-25 16:00] VITALS: BP 133/60
[2022-02-25] MEDS: WARFARIN SODIUM 1 MG TABLET PO SCH (16:47)
[2022-02-25 19:21] VITALS: BP 146/65
[2022-02-25 21:31] LABS: GLUCOMETER DEV NAME(LOC) 5S.2B; GLUCOSE,POINT OF CARE 272 MG/DL (70-110)
[2022-02-26 00:13] VITALS: BP 115/59
[2022-02-26] MEDS: HEPARIN SODIUM,PORCINE 5,000 UNITS/ML VIAL SQ SCH ×4 (00:23→23:53)
[2022-02-26] MEDS: INSULIN LISPRO 100 UNITS/ML SQ PRN ×4 (05:56→20:46)
[2022-02-26 06:31] LABS: GLUCOMETER DEV NAME(LOC) 5S.2B; GLUCOSE,POINT OF CARE 225 MG/DL (70-110)
[2022-02-26 06:47] VITALS: BP 112/54
[2022-02-26 07:11] VITALS: BP 121/65
[2022-02-26] MEDS: MEROPENEM 1 GM in SODIUM CHLORIDE 0.9% 100 ML IV SCH ×2 (08:44→20:46)
[2022-02-26] MEDS: FUROSEMIDE 40 MG TABLET PO SCH ×2 (08:45→20:49)
[2022-02-26] MEDS: METOPROLOL SUCCINATE 25 MG ER TABLET PO SCH ×2 (08:45→20:41)
[2022-02-26] MEDS: MULTIVITAMINS WITH MINERALS, THERAPEUTIC TABLET PO SCH (08:45)
[2022-02-26] MEDS: AMIODARONE HCL 200 MG TABLET PO SCH ×2 (08:45→20:41)
[2022-02-26 11:11] VITALS: BP 127/52
[2022-02-26 15:09] VITALS: BP 125/64
[2022-02-26] MEDS: WARFARIN SODIUM 1 MG TABLET PO SCH (16:14)
[2022-02-26] MEDS ORDERED: INSLAN SQ (18:17)
[2022-02-26] MEDS ORDERED: SENN-187 PO (18:17)
[2022-02-26] MEDS ORDERED: QUET25TA PO (18:17)
[2022-02-26] MEDS ORDERED: NUT.237L28 PO (18:17)
[2022-02-26] MEDS ORDERED: DULO-114 PO (18:17)
[2022-02-26] MEDS ORDERED: LORA-999 PO (18:17)
[2022-02-26] MEDS ORDERED: ZINC220C14 PO (18:17)
[2022-02-26] MEDS ORDERED: MONT-35 PO (18:25)
[2022-02-26] MEDS ORDERED: [UNRECOGNIZED DRUG - CODE] PO (18:25)
[2022-02-26] MEDS ORDERED: EMPA10TA3 PO (18:25)
[2022-02-26] MEDS ORDERED: CHOL25TA4 PO (18:25)
[2022-02-26] MEDS ORDERED: METO25XL PO (18:25)
[2022-02-26] MEDS ORDERED: FLUT1BLS8 IH (18:25)
[2022-02-26] MEDS ORDERED: FURO-151 PO (18:25)
[2022-02-26] MEDS ORDERED: NA P133E4 PR (18:29)
[2022-02-26] MEDS ORDERED: PANT-31 PO (18:29)
[2022-02-26] MEDS ORDERED: MAGN-169 PO (18:29)
[2022-02-26] MEDS ORDERED: BISA10SU11 PR (18:29)
[2022-02-26 19:46] VITALS: BP 101/52
[2022-02-26 20:01] LABS: GLUCOMETER DEV NAME(LOC) 5S.1B; GLUCOSE,POINT OF CARE 337 MG/DL (70-110)
[2022-02-26 20:01] LABS: GLUCOMETER DEV NAME(LOC) 5S.1B; GLUCOSE,POINT OF CARE 245 MG/DL (70-110)
[2022-02-26] MEDS: QUEtiapine FUMARATE 25 MG TABLET PO SCH (20:49)
[2022-02-26] MEDS: ACETAMINOPHEN 325 MG TABLET PO PRN (20:49)
[2022-02-27 00:21] LABS: GLUCOMETER DEV NAME(LOC) 5S.1B; GLUCOSE,POINT OF CARE 199 MG/DL (70-110)
[2022-02-27 06:30] LABS: BASOPHILS % (AUTO) 1.1 % (0.0-2.0); EOSINOPHILS % (AUTO) 1.8 % (1.0-6.0); HEMATOCRIT 33.1 % (36-46); HEMOGLOBIN 10.6 g/dL (12.0-16.0); LYMPHOCYTES # (AUTO) 1.6 K/uL (1.0-4.8); LYMPHOCYTES % (AUTO) 17.8 % (22.0-44.0); MEAN CORPUSCULAR HEMOGLOBIN 26.9 pg (26.0-34.0); MEAN CORPUSCULAR HGB CONC 32.2 G/dL (31.0-37.0); MEAN CORPUSCULAR VOLUME 84 fL (80-100); MONOCYTES # (AUTO) 0.7 K/uL (0.1-1.0); MONOCYTES % (AUTO) 7.6 % (2.0-9.0); NEUTROPHILS # (AUTO) 6.6 K/uL (1.8-7.7); NEUTROPHILS % (AUTO) 71.7 % (40.0-70.0); PLATELET COUNT (AUTO) 210 K/uL (150-450); RED BLOOD CELL COUNT(AUTO) 3.95 MIL/uL (4.00-5.20); RED CELL DISTRIBUTION WIDTH 18.3 % (11.5-14.5)
[2022-02-27 06:41] VITALS: BP 112/63
[2022-02-27 06:44] LABS: ALANINE AMINOTRANSFERASE 14 U/L (12-78); ALBUMIN 2.4 g/dL (3.4-5.0); ALKALINE PHOSPHATASE 144 U/L (46-116); ANION GAP 4 mmol/L (8-16); ASPARTATE AMINOTRANSFERASE 21 U/L (15-37); BILIRUBIN,TOTAL 0.4 mg/dL (0.1-1.0); CALCIUM, TOTAL 8.7 mg/dL (8.8-10.5); CARBON DIOXIDE 34 mmol/L (22-29); CHLORIDE 103 mmol/L (98-107); CREATININE 0.75 mg/dL (0.60-1.30); GLUCOSE,RANDOM 211 mg/dL (70-110); SODIUM SERUM 141 mmol/L (136-145); TOTAL PROTEIN, SERUM 6.1 g/dL (6.4-8.2); UREA NITROGEN, BLOOD 18 mg/dL (7-18)
[2022-02-27 06:57] LABS: GLOMERULAR FILTR. RATE CALC > 60 mL/min (>60)
[2022-02-27 07:34] VITALS: BP 120/51
[2022-02-27 07:46] LABS: GLUCOMETER DEV NAME(LOC) 5S.1B; GLUCOSE,POINT OF CARE 203 MG/DL (70-110)
[2022-02-27] MEDS: MULTIVITAMINS WITH MINERALS, THERAPEUTIC TABLET PO SCH (08:30)
[2022-02-27] MEDS: QUEtiapine FUMARATE 25 MG TABLET PO SCH (08:30)
[2022-02-27] MEDS: FUROSEMIDE 40 MG TABLET PO SCH ×2 (08:30→20:07)
[2022-02-27] MEDS: METOPROLOL SUCCINATE 25 MG ER TABLET PO SCH ×2 (08:30→20:08)
[2022-02-27] MEDS: AMIODARONE HCL 200 MG TABLET PO SCH ×2 (08:30→20:08)
[2022-02-27] MEDS: HEPARIN SODIUM,PORCINE 5,000 UNITS/ML VIAL SQ SCH (08:30)
[2022-02-27] MEDS ORDERED: SENNOSIDES 8.6 MG TABLET PO PRN (09:30)
[2022-02-27] MEDS ORDERED: LORazepam 0.5 MG TABLET PO PRN (09:30)
[2022-02-27] MEDS ORDERED: MAGNESIUM HYDROXIDE SUSPENSION 30 ML UDCUP PO PRN (09:30)
[2022-02-27] MEDS: ACETAMINOPHEN 325 MG TABLET PO PRN ×2 (10:18→18:03)
[2022-02-27] MEDS: POTASSIUM CHLORIDE 10% 40 MEQ/30 ML LIQUID UDCUP PO PRN ×2 (10:20→17:31)
[2022-02-27 11:48] LABS: INR 2.8 (0.9-1.1); PROTHROMBIN TIME 28.9 SEC (9.4-11.6)
[2022-02-27 11:57] VITALS: BP 102/47
[2022-02-27] MEDS: INSULIN LISPRO 100 UNITS/ML SQ PRN ×2 (12:04→17:40)
[2022-02-27 15:05] VITALS: BP 99/53
[2022-02-27] MEDS: WARFARIN SODIUM 1 MG TABLET PO SCH (17:31)
[2022-02-27 19:41] VITALS: BP 129/53
[2022-02-27] MEDS: MONTELUKAST SODIUM 10 MG TABLET PO SCH (20:07)
[2022-02-27] MEDS: FLUTICASONE/SALMETEROL 100-50 MCG/INH INHALER [60] IH SCH (20:07)
[2022-02-27] MEDS: ALPRAZolam 0.5 MG TABLET PO PRN (20:08)
[2022-02-27 20:16] LABS: GLUCOMETER DEV NAME(LOC) 5S.1B; GLUCOSE,POINT OF CARE 298 MG/DL (70-110)
[2022-02-27 20:16] LABS: GLUCOMETER DEV NAME(LOC) 5S.1B; GLUCOSE,POINT OF CARE 153 MG/DL (70-110)
[2022-02-28 00:26] VITALS: BP 113/48
[2022-02-28 05:30] VITALS: BP 110/47
[2022-02-28 05:31] LABS: GLUCOMETER DEV NAME(LOC) 5S.1B; GLUCOSE,POINT OF CARE 311 MG/DL (70-110)
[2022-02-28 06:09] LABS: PROTHROMBIN TIME 30.3 SEC (9.4-11.6)
[2022-02-28] MEDS: INSULIN LISPRO 100 UNITS/ML SQ PRN ×3 (06:24→17:47)
[2022-02-28 08:16] VITALS: BP 113/40
[2022-02-28] MEDS ORDERED: QUEtiapine FUMARATE 25 MG TABLET PO SCH ×3 (09:00→21:00)
[2022-02-28] MEDS ORDERED: METOPROLOL SUCCINATE 25 MG ER TABLET PO SCH (09:00)
[2022-02-28] MEDS ORDERED: INSULIN GLARGINE,HUM.REC.ANLOG 100 UNITS/ML SQ SCH (09:00)
[2022-02-28] MEDS: EMPAGLIFLOZIN 10 MG TABLET PO SCH (09:23)
[2022-02-28] MEDS: FUROSEMIDE 40 MG TABLET PO SCH ×2 (09:23→20:49)
[2022-02-28] MEDS: PANTOPRAZOLE SODIUM 40 MG DR TABLET PO SCH (09:23)
[2022-02-28] MEDS: MULTIVITAMINS WITH MINERALS, THERAPEUTIC TABLET PO SCH (09:23)
[2022-02-28] MEDS: CHOLECALCIFEROL (VIT D3) 1,000 UNITS [25 MCG] TABLET PO SCH (09:24)
[2022-02-28] MEDS: ZINC SULFATE 220 MG CAPSULE PO SCH (09:24)
[2022-02-28] MEDS: METOPROLOL SUCCINATE 25 MG ER TABLET PO SCH ×2 (09:24→20:49)
[2022-02-28] MEDS: AMIODARONE HCL 200 MG TABLET PO SCH ×2 (09:24→20:49)
[2022-02-28] MEDS: ACETAMINOPHEN 325 MG TABLET PO PRN ×2 (09:51→16:04)
[2022-02-28] MEDS: FLUTICASONE/SALMETEROL 100-50 MCG/INH INHALER [60] IH SCH ×2 (10:05→20:51)
[2022-02-28 11:30] VITALS: BP 117/52
[2022-02-28] MEDS ORDERED: POTASSIUM CHLORIDE 10 MEQ ER TABLET PO ONE (13:00)
[2022-02-28 15:16] VITALS: BP 123/44
[2022-02-28] MEDS: WARFARIN SODIUM 1 MG TABLET PO SCH (17:48)
[2022-02-28 19:43] VITALS: BP 125/49
[2022-02-28] MEDS: MONTELUKAST SODIUM 10 MG TABLET PO SCH (20:48)
[2022-02-28] MEDS: QUEtiapine FUMARATE 25 MG TABLET PO SCH (20:49)
[2022-02-28] MEDS: INSULIN GLARGINE,HUM.REC.ANLOG 100 UNITS/ML SQ SCH (21:00)
[2022-02-28 21:31] LABS: GLUCOMETER DEV NAME(LOC) 5S.1B; GLUCOSE,POINT OF CARE 157 MG/DL (70-110)
[2022-02-28 21:31] LABS: GLUCOMETER DEV NAME(LOC) 5S.1B; GLUCOSE,POINT OF CARE 157 MG/DL (70-110)
[2022-02-28 21:31] LABS: GLUCOMETER DEV NAME(LOC) 5S.1B; GLUCOSE,POINT OF CARE 175 MG/DL (70-110)
[2022-02-28 21:31] LABS: GLUCOMETER DEV NAME(LOC) 5S.1B; GLUCOSE,POINT OF CARE 272 MG/DL (70-110)
[2022-02-28] MEDS: ALPRAZolam 0.5 MG TABLET PO PRN (21:36)
[2022-03-01 04:30] VITALS: BP 112/56
[2022-03-01 05:50] LABS: BASOPHILS % (AUTO) 0.8 % (0.0-2.0); EOSINOPHILS % (AUTO) 2.1 % (1.0-6.0); HEMATOCRIT 38.3 % (36-46); HEMOGLOBIN 12.1 g/dL (12.0-16.0); LYMPHOCYTES # (AUTO) 1.4 K/uL (1.0-4.8); LYMPHOCYTES % (AUTO) 13.6 % (22.0-44.0); MEAN CORPUSCULAR HEMOGLOBIN 26.7 pg (26.0-34.0); MEAN CORPUSCULAR HGB CONC 31.7 G/dL (31.0-37.0); MEAN CORPUSCULAR VOLUME 84 fL (80-100); MONOCYTES # (AUTO) 0.6 K/uL (0.1-1.0); MONOCYTES % (AUTO) 6.1 % (2.0-9.0); NEUTROPHILS % (AUTO) 77.4 % (40.0-70.0); PLATELET COUNT (AUTO) 228 K/uL (150-450); RED BLOOD CELL COUNT(AUTO) 4.55 MIL/uL (4.00-5.20); RED CELL DISTRIBUTION WIDTH 18.4 % (11.5-14.5)
[2022-03-01 06:07] LABS: INR 3.8 (0.9-1.1); PROTHROMBIN TIME 37.7 SEC (9.4-11.6)
[2022-03-01 06:17] LABS: ALBUMIN 2.8 g/dL (3.4-5.0); BILIRUBIN,TOTAL 0.4 mg/dL (0.1-1.0); CALCIUM, TOTAL 9.8 mg/dL (8.8-10.5); CREATININE 0.97 mg/dL (0.60-1.30); TOTAL PROTEIN, SERUM 7.2 g/dL (6.4-8.2)
[2022-03-01] MEDS: INSULIN LISPRO 100 UNITS/ML SQ PRN ×2 (06:18→12:04)
[2022-03-01 06:26] LABS: GLUCOMETER DEV NAME(LOC) 5S.1B; GLUCOSE,POINT OF CARE 201 MG/DL (70-110)
[2022-03-01 08:16] VITALS: BP 100/61
[2022-03-01] MEDS: ZINC SULFATE 220 MG CAPSULE PO SCH (08:50)
[2022-03-01] MEDS: AMIODARONE HCL 200 MG TABLET PO SCH (08:50)
[2022-03-01] MEDS: MULTIVITAMINS WITH MINERALS, THERAPEUTIC TABLET PO SCH (08:51)
[2022-03-01] MEDS: CHOLECALCIFEROL (VIT D3) 1,000 UNITS [25 MCG] TABLET PO SCH (08:51)
[2022-03-01] MEDS: EMPAGLIFLOZIN 10 MG TABLET PO SCH (08:51)
[2022-03-01] MEDS: QUEtiapine FUMARATE 25 MG TABLET PO SCH (08:51)
[2022-03-01] MEDS: FUROSEMIDE 40 MG TABLET PO SCH (08:51)
[2022-03-01] MEDS: PANTOPRAZOLE SODIUM 40 MG DR TABLET PO SCH (08:52)
[2022-03-01] MEDS: METOPROLOL SUCCINATE 25 MG ER TABLET PO SCH (08:53)
[2022-03-01] MEDS ORDERED: POTASSIUM CHLORIDE 20 MEQ ER TABLET PO SCH (09:00)
[2022-03-01] MEDS: FLUTICASONE/SALMETEROL 100-50 MCG/INH INHALER [60] IH SCH (09:01)
[2022-03-01] MEDS: INSULIN GLARGINE,HUM.REC.ANLOG 100 UNITS/ML SQ SCH (09:18)
[2022-03-01 12:24] VITALS: BP 102/50
[2022-03-01 14:49] VITALS: BP 103/73
[2022-03-01] MEDS: WARFARIN SODIUM 1 MG TABLET PO SCH (17:00)
[2022-03-01] MEDS ORDERED: QUET25TA PO (17:28)
== END 2022-03-01 18:45 | DRG 871 ==
LOC: EMS 20:17 → AHU 02-20 12:40 → 5N 02-20 22:24
PROVIDERS: ADMIT Internal Medicine; ATTEND Internal Medicine
DX: A41.9 Sepsis, unspecified organism (principal); G92.8 Other toxic encephalopathy; I50.23 Acute on chronic systolic (congestive) heart failure; I21.4 Non-ST elevation (NSTEMI) myocardial infarction; I48.19 Other persistent atrial fibrillation; N39.0 Urinary tract infection, site not specified; I48.92 Unspecified atrial flutter; E44.0 Moderate protein-calorie malnutrition; F03.918 Unspecified dementia, unspecified severity, with other behavioral disturbance; E11.9 Type 2 diabetes mellitus without complications; E87.6 Hypokalemia; J44.9 Chronic obstructive pulmonary disease, unspecified; Z66 Do not resuscitate; F32.A Depression, unspecified; R13.10 Dysphagia, unspecified; Z79.01 Long term (current) use of anticoagulants; Z79.4 Long term (current) use of insulin; Z86.16 Personal history of COVID-19; Z95.3 Presence of xenogenic heart valve; Z87.01 Personal history of pneumonia (recurrent); Z79.899 Other long term (current) drug therapy; Z88.5 Allergy status to narcotic agent; Z88.8 Allergy status to other drugs, medicaments and biological substances; Z86.73 Personal history of transient ischemic attack (TIA), and cerebral infarction without residual deficits; Z68.21 Body mass index [BMI] 21.0-21.9, adult
CPT/HCPCS: 70496; 70551; 71045; 80048; 80053; 81001; 82962; 83036; 83605; 83690; 83735; 83880; 84132; 84484; 85025; 85610; 87040; 87081; 87086; 87186; 92526; 92610; 93005; 97112; 97162; 97530; 99291; J0282; J0696; J1630; J1644; J1815; J1940; J2060; J2185; J2405; J3480; J3535; J7040; J7050; J7060; Q9967; 36415-L1; 36415-TC; 70450; 70450-TC

== ENCOUNTER 2022-03-22 08:31 | Inpatient (IN) | payer MEDICARE ==
[~2022-03-22] VITALS: Ht 152.4 cm; Wt 49.3 kg
[~2022-03-22 08:31] MED LIST changes: -ALPR-707 PO; +BISA10SU11 PR; -CEFX2I IV; +CHOL25TA4 PO; -DEXA4 PO; +DULO-114 PO; +EMPA10TA3 PO; +FLUT1BLS8 IH; +FURO-151 PO; -FURO40 PO; +INSLAN SQ; +LORA-999 PO; +MAGN-169 PO; +MONT-35 PO; +PANT-31 PO; +QUET25TA PO; +SENN-187 PO; +ZINC220C14 PO
[2022-03-22 09:46] LABS: BASOPHILS % (AUTO) 0.6 % (0.0-2.0); EOSINOPHILS % (AUTO) 1.1 % (1.0-6.0); HEMATOCRIT 38.3 % (36-46); HEMOGLOBIN 11.7 g/dL (12.0-16.0); LYMPHOCYTES # (AUTO) 0.9 K/uL (1.0-4.8); LYMPHOCYTES % (AUTO) 9.4 % (22.0-44.0); MEAN CORPUSCULAR HEMOGLOBIN 25.1 pg (26.0-34.0); MEAN CORPUSCULAR HGB CONC 30.6 G/dL (31.0-37.0); MEAN CORPUSCULAR VOLUME 82 fL (80-100); MONOCYTES # (AUTO) 0.6 K/uL (0.1-1.0); MONOCYTES % (AUTO) 6.2 % (2.0-9.0); NEUTROPHILS # (AUTO) 7.8 K/uL (1.8-7.7); NEUTROPHILS % (AUTO) 82.7 % (40.0-70.0); PLATELET COUNT (AUTO) 233 K/uL (150-450); RED BLOOD CELL COUNT(AUTO) 4.68 MIL/uL (4.00-5.20)
[2022-03-22 10:00] LABS: INR 1.2 (0.9-1.1); PROTHROMBIN TIME 12.3 SEC (9.4-11.6)
[2022-03-22 10:03] LABS: ALANINE AMINOTRANSFERASE 19 U/L (12-78); ALBUMIN 2.9 g/dL (3.4-5.0); ALKALINE PHOSPHATASE 129 U/L (46-116); ANION GAP 9 mmol/L (8-16); ASPARTATE AMINOTRANSFERASE 36 U/L (15-37); BILIRUBIN,TOTAL 0.6 mg/dL (0.1-1.0); CALCIUM, TOTAL 9.3 mg/dL (8.8-10.5); CARBON DIOXIDE 32 mmol/L (22-29); CHLORIDE 104 mmol/L (98-107); CREATININE 0.71 mg/dL (0.60-1.30); GLUCOSE,RANDOM 99 mg/dL (70-110); SODIUM SERUM 145 mmol/L (136-145); TOTAL PROTEIN, SERUM 7.7 g/dL (6.4-8.2); UREA NITROGEN, BLOOD 16 mg/dL (7-18)
[2022-03-22 10:04] LABS: GLOMERULAR FILTR. RATE CALC > 60 mL/min (>60)
[2022-03-22] MEDS ORDERED: POTASSIUM CHLORIDE 20 MEQ ER TABLET PO PRN (10:30)
[2022-03-22] MEDS ORDERED: ONDANSETRON HCL 4 MG/2 ML VIAL IVP PRN (10:30)
[2022-03-22] MEDS ORDERED: DEXTROSE 50%-WATER 25 GM/50 ML SYRINGE IVP PRN (10:30)
[2022-03-22] MEDS ORDERED: BISACODYL 10 MG RECTAL RECTAL SUPPOSITORY PR PRN (10:30)
[2022-03-22] MEDS ORDERED: ACETAMINOPHEN 325 MG TABLET PO PRN (10:30)
[2022-03-22] MEDS ORDERED: ASPIRIN 300 MG RECTAL SUPPOSITORY PR ONE (10:45)
[2022-03-22] MEDS: DEXTROSE 5%-0.45% SODIUM CHL 1,000 ML IV SCH (12:28)
[2022-03-22 13:11] LABS: COVID AG,FIA SOURCE NASAL SWAB
[2022-03-22] MEDS: POTASSIUM CHL 10 MEQ/WATER 50 ML IV PRN ×3 (13:56→23:55)
[2022-03-22 16:06] LABS: APPEARANCE,URINE HAZY (CLEAR); BILIRUBIN,URINE NEGATIVE (NEGATIVE); GLUCOSE, URINE (UA) >=1000 mg/dL (NEGATIVE); KETONES,URINE NEGATIVE (NEGATIVE); LEUKOCYTE ESTERASE ,URINE LARGE (NEGATIVE); NITRATE,URINE NEGATIVE (NEGATIVE); OCCULT BLOOD,URINE SMALL (NEGATIVE); PH,URINE 6.5 (5.0-8.0); PROTEIN,URINE 30-70 mg/dL (NEGATIVE); SPECIFIC GRAVITIY, URINE 1.043 (1.003-1.030); UROBILINOGEN,URINE <=1.0 mg/dL (<=1.0)
[2022-03-22 16:20] VITALS: BP 122/54
[2022-03-22 16:37] LABS: BACTERIA,URINE Few /HPF (None Seen); RBC,URINE 0-2 /HPF (0-2); WBC,URINE >100 /HPF (0-5); YEAST,URINE Few /HPF (None Seen)
[2022-03-22 19:45] VITALS: BP 105/53
[2022-03-22] MEDS ORDERED: HALOPERIDOL LACTATE 5 MG/ML VIAL IM ONE (20:15)
[2022-03-22 20:28] LABS: GLUCOMETER DEV NAME(LOC) 5S.2B; GLUCOSE,POINT OF CARE 80 MG/DL (70-110)
[2022-03-22] MEDS: ENOXAPARIN SODIUM 40 MG/0.4 ML PF SYRINGE SQ SCH (20:48)
[2022-03-22 23:16] VITALS: BP 128/62
[2022-03-23] MEDS: POTASSIUM CHL 10 MEQ/WATER 50 ML IV PRN (01:32)
[2022-03-23 04:00] VITALS: BP 127/64
[2022-03-23 04:24] LABS: POTASSIUM 4.2 mmol/L (3.5-5.1)
[2022-03-23 08:06] VITALS: BP 126/62
[2022-03-23 08:16] LABS: CHOL/HDL RATIO 2.5 (3.9-5.7)
[2022-03-23] MEDS: PANTOPRAZOLE SODIUM 40 MG/VIAL IVP SCH (09:04)
[2022-03-23] MEDS: ENOXAPARIN SODIUM 40 MG/0.4 ML PF SYRINGE SQ SCH ×2 (09:06→21:50)
[2022-03-23 11:33] LABS: GLUCOMETER DEV NAME(LOC) 5N.1C; GLUCOSE,POINT OF CARE 86 MG/DL (70-110)
[2022-03-23 11:33] LABS: GLUCOMETER DEV NAME(LOC) 5N.1C; GLUCOSE,POINT OF CARE 153 MG/DL (70-110)
[2022-03-23 11:58] LABS: GLUCOMETER DEV NAME(LOC) 5S.2B; GLUCOSE,POINT OF CARE 99 MG/DL (70-110)
[2022-03-23 12:00] VITALS: BP 126/55
[2022-03-23] MEDS: INSULIN LISPRO 100 UNITS/ML SQ PRN (12:28)
[2022-03-23] MEDS ORDERED: *CLINICAL-MEROPENEM DOSING CLINICAL ONE (12:30)
[2022-03-23] MEDS: DEXTROSE 5%-0.45% SODIUM CHL 1,000 ML IV SCH (12:35)
[2022-03-23] MEDS ORDERED: CefTRIAXone 1 GM/DEXTROSE 50 ML IV SCH (13:00)
[2022-03-23] MEDS: MEROPENEM 1 GM in SODIUM CHLORIDE 0.9% 100 ML IV SCH (13:31)
[2022-03-23 16:00] VITALS: BP 110/58
[2022-03-23 20:04] VITALS: BP 123/40
[2022-03-23 20:08] LABS: GLUCOMETER DEV NAME(LOC) 5N.1C; GLUCOSE,POINT OF CARE 164 MG/DL (70-110)
[2022-03-23 20:23] LABS: GLUCOMETER DEV NAME(LOC) 5S.1B; GLUCOSE,POINT OF CARE 138 MG/DL (70-110)
[2022-03-23 21:18] LABS: GLUCOMETER DEV NAME(LOC) 5S.1B; GLUCOSE,POINT OF CARE 148 MG/DL (70-110)
[2022-03-24] MEDS: MEROPENEM 1 GM in SODIUM CHLORIDE 0.9% 100 ML IV SCH ×2 (01:25→13:01)
[2022-03-24] MEDS: DEXTROSE 5%-0.45% SODIUM CHL 1,000 ML IV SCH ×2 (05:13→23:41)
[2022-03-24 06:26] VITALS: BP 108/32
[2022-03-24 07:08] LABS: GLUCOMETER DEV NAME(LOC) 5S.2B; GLUCOSE,POINT OF CARE 156 MG/DL (70-110)
[2022-03-24 07:51] VITALS: BP 102/42
[2022-03-24] MEDS: ENOXAPARIN SODIUM 40 MG/0.4 ML PF SYRINGE SQ SCH ×2 (08:34→20:13)
[2022-03-24] MEDS: PANTOPRAZOLE SODIUM 40 MG/VIAL IVP SCH (08:34)
[2022-03-24] MEDS: INSULIN LISPRO 100 UNITS/ML SQ PRN ×2 (11:22→17:27)
[2022-03-24 12:03] VITALS: BP 129/49
[2022-03-24 16:00] VITALS: BP 116/46
[2022-03-24] MEDS: RisperiDONE 0.5 MG TABLET PO SCH (17:25)
[2022-03-24] MEDS: FLUTICASONE/VILANTEROL 200-25 MCG/INH INHALER [14] IH SCH (17:26)
[2022-03-24 18:08] LABS: GLUCOMETER DEV NAME(LOC) 5N.1C; GLUCOSE,POINT OF CARE 197 MG/DL (70-110)
[2022-03-24 19:06] VITALS: BP 133/55
[2022-03-24 20:03] LABS: GLUCOMETER DEV NAME(LOC) 5S.2B; GLUCOSE,POINT OF CARE 170 MG/DL (70-110)
[2022-03-24] MEDS: MONTELUKAST SODIUM 10 MG TABLET PO SCH (20:13)
[2022-03-24] MEDS: MIRTAZAPINE 15 MG TABLET PO SCH (20:13)
[2022-03-24] MEDS ORDERED: RisperiDONE 0.5 MG TABLET PO PRN (21:00)
[2022-03-25] MEDS: MEROPENEM 1 GM in SODIUM CHLORIDE 0.9% 100 ML IV SCH ×2 (00:42→12:18)
[2022-03-25 07:45] VITALS: BP 131/56
[2022-03-25] MEDS: PANTOPRAZOLE SODIUM 40 MG/VIAL IVP SCH (08:12)
[2022-03-25] MEDS: ENOXAPARIN SODIUM 40 MG/0.4 ML PF SYRINGE SQ SCH ×2 (08:12→21:40)
[2022-03-25] MEDS: RisperiDONE 0.5 MG TABLET PO SCH (08:13)
[2022-03-25] MEDS: FLUTICASONE/VILANTEROL 200-25 MCG/INH INHALER [14] IH SCH (09:00)
[2022-03-25 10:58] VITALS: BP 167/65
[2022-03-25] MEDS: INSULIN LISPRO 100 UNITS/ML SQ PRN ×3 (11:56→21:34)
[2022-03-25 11:58] LABS: GLUCOMETER DEV NAME(LOC) 5N.1C; GLUCOSE,POINT OF CARE 273 MG/DL (70-110)
[2022-03-25] MEDS ORDERED: LORazepam 0.5 MG TABLET PO PRN (13:00)
[2022-03-25] MEDS: DULoxetine HCL 30 MG CAPSULE PO SCH (13:53)
[2022-03-25] MEDS: DEXTROSE 5%-0.45% SODIUM CHL 1,000 ML IV SCH (16:08)
[2022-03-25] MEDS ORDERED: QUEtiapine FUMARATE 25 MG TABLET PO SCH ×2 (17:15→21:00)
[2022-03-25 18:48] LABS: GLUCOMETER DEV NAME(LOC) 6N.2B; GLUCOSE,POINT OF CARE 174 MG/DL (70-110)
[2022-03-25 19:30] VITALS: BP 124/54
[2022-03-25] MEDS: MIRTAZAPINE 15 MG TABLET PO SCH (21:37)
[2022-03-25] MEDS: MONTELUKAST SODIUM 10 MG TABLET PO SCH (21:38)
[2022-03-25] MEDS: TraZODone HCL 50 MG TABLET PO SCH (21:39)
[2022-03-25 23:48] LABS: GLUCOMETER DEV NAME(LOC) 6N.2B; GLUCOSE,POINT OF CARE 154 MG/DL (70-110)
[2022-03-26] MEDS: MEROPENEM 1 GM in SODIUM CHLORIDE 0.9% 100 ML IV SCH ×2 (01:10→11:56)
[2022-03-26 04:30] VITALS: BP 122/41
[2022-03-26 07:41] LABS: GLUCOMETER DEV NAME(LOC) 6N.1; GLUCOSE,POINT OF CARE 120 MG/DL (70-110)
[2022-03-26 08:19] VITALS: BP 120/47
[2022-03-26] MEDS: DEXTROSE 5%-0.45% SODIUM CHL 1,000 ML IV SCH (09:16)
[2022-03-26] MEDS: PANTOPRAZOLE SODIUM 40 MG/VIAL IVP SCH (09:17)
[2022-03-26] MEDS: ENOXAPARIN SODIUM 40 MG/0.4 ML PF SYRINGE SQ SCH ×2 (09:17→21:07)
[2022-03-26] MEDS: RisperiDONE 0.5 MG TABLET PO SCH (12:55)
[2022-03-26] MEDS: DULoxetine HCL 30 MG CAPSULE PO SCH (12:55)
[2022-03-26] MEDS: FLUTICASONE/VILANTEROL 200-25 MCG/INH INHALER [14] IH SCH (12:55)
[2022-03-26 13:16] LABS: GLUCOMETER DEV NAME(LOC) 6N.2B; GLUCOSE,POINT OF CARE 165 MG/DL (70-110)
[2022-03-26 16:05] VITALS: BP 112/46
[2022-03-26] MEDS: INSULIN LISPRO 100 UNITS/ML SQ PRN ×2 (17:49→21:58)
[2022-03-26 20:18] VITALS: BP 123/51
[2022-03-26] MEDS: MIRTAZAPINE 15 MG TABLET PO SCH (21:04)
[2022-03-26] MEDS: MONTELUKAST SODIUM 10 MG TABLET PO SCH (21:05)
[2022-03-26] MEDS: TraZODone HCL 50 MG TABLET PO SCH (21:06)
[2022-03-26 21:16] LABS: GLUCOMETER DEV NAME(LOC) 6N.2B; GLUCOSE,POINT OF CARE 295 MG/DL (70-110)
[2022-03-27] MEDS: MEROPENEM 1 GM in SODIUM CHLORIDE 0.9% 100 ML IV SCH ×2 (00:48→12:19)
[2022-03-27] MEDS: DEXTROSE 5%-0.45% SODIUM CHL 1,000 ML IV SCH ×2 (00:49→17:51)
[2022-03-27 05:11] VITALS: BP 119/50
[2022-03-27] MEDS: INSULIN LISPRO 100 UNITS/ML SQ PRN ×4 (06:10→22:19)
[2022-03-27 08:00] VITALS: BP 105/35
[2022-03-27] MEDS: ENOXAPARIN SODIUM 40 MG/0.4 ML PF SYRINGE SQ SCH ×2 (08:26→20:50)
[2022-03-27] MEDS: FLUTICASONE/VILANTEROL 200-25 MCG/INH INHALER [14] IH SCH (08:26)
[2022-03-27] MEDS: PANTOPRAZOLE SODIUM 40 MG/VIAL IVP SCH (08:26)
[2022-03-27] MEDS: DULoxetine HCL 30 MG CAPSULE PO SCH ×2 (08:26→09:00)
[2022-03-27] MEDS: RisperiDONE 0.5 MG TABLET PO SCH ×2 (08:27→09:00)
[2022-03-27 09:06] LABS: GLUCOMETER DEV NAME(LOC) 6N.1; GLUCOSE,POINT OF CARE 188 MG/DL (70-110)
[2022-03-27 09:06] LABS: GLUCOMETER DEV NAME(LOC) 6N.1; GLUCOSE,POINT OF CARE 150 MG/DL (70-110)
[2022-03-27 15:26] LABS: GLUCOMETER DEV NAME(LOC) 6N.2B; GLUCOSE,POINT OF CARE 160 MG/DL (70-110)
[2022-03-27 16:00] VITALS: BP 126/44
[2022-03-27 19:28] VITALS: BP 109/49
[2022-03-27] MEDS: TraZODone HCL 50 MG TABLET PO SCH (20:49)
[2022-03-27] MEDS: MONTELUKAST SODIUM 10 MG TABLET PO SCH (20:50)
[2022-03-27] MEDS: MIRTAZAPINE 15 MG TABLET PO SCH (20:52)
[2022-03-27 23:01] LABS: GLUCOMETER DEV NAME(LOC) 6N.1; GLUCOSE,POINT OF CARE 183 MG/DL (70-110)
[2022-03-27 23:01] LABS: GLUCOMETER DEV NAME(LOC) 6N.2B; GLUCOSE,POINT OF CARE 221 MG/DL (70-110)
[2022-03-28] MEDS: MEROPENEM 1 GM in SODIUM CHLORIDE 0.9% 100 ML IV SCH ×2 (01:01→12:27)
[2022-03-28] MEDS: INSULIN LISPRO 100 UNITS/ML SQ PRN ×3 (06:51→20:58)
[2022-03-28 06:53] VITALS: BP 120/44
[2022-03-28 07:56] LABS: GLUCOMETER DEV NAME(LOC) 6N.1; GLUCOSE,POINT OF CARE 152 MG/DL (70-110)
[2022-03-28] MEDS: ENOXAPARIN SODIUM 40 MG/0.4 ML PF SYRINGE SQ SCH ×2 (08:54→20:26)
[2022-03-28] MEDS: PANTOPRAZOLE SODIUM 40 MG/VIAL IVP SCH (08:54)
[2022-03-28] MEDS: DEXTROSE 5%-0.45% SODIUM CHL 1,000 ML IV SCH (09:51)
[2022-03-28] MEDS: FLUTICASONE/VILANTEROL 200-25 MCG/INH INHALER [14] IH SCH (11:24)
[2022-03-28] MEDS: DULoxetine HCL 30 MG CAPSULE PO SCH (11:24)
[2022-03-28] MEDS: RisperiDONE 0.5 MG TABLET PO SCH (11:26)
[2022-03-28 14:16] LABS: GLUCOMETER DEV NAME(LOC) 6N.1; GLUCOSE,POINT OF CARE 138 MG/DL (70-110)
[2022-03-28 16:47] VITALS: BP 108/41
[2022-03-28] MEDS ORDERED: ALBUTEROL SULFATE HFA 90 MCG/PUFF 8 GM INHALER IH PRN (19:45)
[2022-03-28 20:24] VITALS: BP 135/49
[2022-03-28] MEDS: TraZODone HCL 50 MG TABLET PO SCH (20:26)
[2022-03-28] MEDS: MONTELUKAST SODIUM 10 MG TABLET PO SCH (20:26)
[2022-03-28] MEDS: MIRTAZAPINE 15 MG TABLET PO SCH (20:27)
[2022-03-28] MEDS ORDERED: 0.9% SODIUM CHLORIDE 5 ML NEB SOLUTION NEB ONE (21:12)
[2022-03-28] MEDS: ALBUTEROL SULFATE 2.5 MG/0.5 ML NEB SOLUTION NEB PRN (21:49)
[2022-03-29] MEDS: LORazepam 1 MG TABLET PO PRN ×2 (00:09→20:03)
[2022-03-29] MEDS: MEROPENEM 1 GM in SODIUM CHLORIDE 0.9% 100 ML IV SCH ×2 (00:16→11:30)
[2022-03-29] MEDS ORDERED: SODIUM CHLORIDE 0.9% 500 ML IV ONE (00:22)
[2022-03-29 01:31] LABS: GLUCOMETER DEV NAME(LOC) 6N.1; GLUCOSE,POINT OF CARE 186 MG/DL (70-110)
[2022-03-29 01:31] LABS: GLUCOMETER DEV NAME(LOC) 6N.1; GLUCOSE,POINT OF CARE 174 MG/DL (70-110)
[2022-03-29] MEDS ORDERED: 0.9% SODIUM CHLORIDE 5 ML NEB SOLUTION NEB ONE (03:12)
[2022-03-29] MEDS: ALBUTEROL SULFATE 2.5 MG/0.5 ML NEB SOLUTION NEB PRN ×4 (03:35→22:58)
[2022-03-29] MEDS: DEXTROSE 5%-0.45% SODIUM CHL 1,000 ML IV SCH ×2 (04:12→20:02)
[2022-03-29 05:09] VITALS: BP 106/39
[2022-03-29] MEDS: INSULIN LISPRO 100 UNITS/ML SQ PRN ×3 (06:38→20:18)
[2022-03-29 06:56] LABS: GLUCOMETER DEV NAME(LOC) 6N.2B; GLUCOSE,POINT OF CARE 239 MG/DL (70-110)
[2022-03-29 08:22] VITALS: BP 116/48
[2022-03-29] MEDS: DULoxetine HCL 30 MG CAPSULE PO SCH (08:35)
[2022-03-29] MEDS: RisperiDONE 0.5 MG TABLET PO SCH (08:36)
[2022-03-29] MEDS: PANTOPRAZOLE SODIUM 40 MG/VIAL IVP SCH (08:38)
[2022-03-29] MEDS: ENOXAPARIN SODIUM 40 MG/0.4 ML PF SYRINGE SQ SCH ×2 (08:39→20:04)
[2022-03-29] MEDS: FLUTICASONE/VILANTEROL 200-25 MCG/INH INHALER [14] IH SCH (08:41)
[2022-03-29 11:42] LABS: GLUCOMETER DEV NAME(LOC) 6N.1; GLUCOSE,POINT OF CARE 207 MG/DL (70-110)
[2022-03-29 19:56] LABS: GLUCOMETER DEV NAME(LOC) 6N.2B; GLUCOSE,POINT OF CARE 175 MG/DL (70-110)
[2022-03-29] MEDS: MIRTAZAPINE 15 MG TABLET PO SCH (20:03)
[2022-03-29] MEDS: PHENAZOPYRIDINE HCL 100 MG TABLET PO SCH (20:03)
[2022-03-29] MEDS: TraZODone HCL 50 MG TABLET PO SCH (20:03)
[2022-03-29] MEDS: MONTELUKAST SODIUM 10 MG TABLET PO SCH (20:03)
[2022-03-29 20:13] VITALS: BP 122/63
[2022-03-30] MEDS: MEROPENEM 1 GM in SODIUM CHLORIDE 0.9% 100 ML IV SCH (00:36)
[2022-03-30 03:17] LABS: GLUCOMETER DEV NAME(LOC) 6N.1; GLUCOSE,POINT OF CARE 215 MG/DL (70-110)
[2022-03-30] MEDS: ALBUTEROL SULFATE 2.5 MG/0.5 ML NEB SOLUTION NEB PRN ×2 (05:30→09:51)
[2022-03-30 06:00] VITALS: BP 122/61
[2022-03-30] MEDS ORDERED: ENOX40SY14 SQ (07:31)
[2022-03-30] MEDS ORDERED: MIRT-89 PO (07:32)
[2022-03-30] MEDS ORDERED: TRAZ-252 PO (07:34)
[2022-03-30] MEDS ORDERED: RISP0.5T39 PO (07:34)
[2022-03-30] MEDS ORDERED: FLUT1BLS IH (07:37)
[2022-03-30] MEDS ORDERED: ASPI-1450 PO (07:37)
[2022-03-30] MEDS ORDERED: CLOP75TA60 PO (07:38)
[2022-03-30] MEDS ORDERED: PHEN-846 PO (07:39)
[2022-03-30 08:00] VITALS: BP 121/53
[2022-03-30] MEDS: DULoxetine HCL 30 MG CAPSULE PO SCH (08:31)
[2022-03-30] MEDS: PHENAZOPYRIDINE HCL 100 MG TABLET PO SCH (08:31)
[2022-03-30] MEDS: ENOXAPARIN SODIUM 40 MG/0.4 ML PF SYRINGE SQ SCH (08:32)
[2022-03-30] MEDS: RisperiDONE 0.5 MG TABLET PO SCH (08:32)
[2022-03-30] MEDS: PANTOPRAZOLE SODIUM 40 MG/VIAL IVP SCH (08:32)
[2022-03-30] MEDS: FLUTICASONE/VILANTEROL 200-25 MCG/INH INHALER [14] IH SCH (08:33)
[2022-03-30] MEDS ORDERED: 0.9% SODIUM CHLORIDE 5 ML NEB SOLUTION NEB ONE (09:48)
[2022-03-30 11:16] LABS: GLUCOMETER DEV NAME(LOC) 6N.1; GLUCOSE,POINT OF CARE 126 MG/DL (70-110)
== END 2022-03-30 10:55 | disposition hospice, home (50) | DRG 64 ==
LOC: EMS 08:36 → 5S 13:15 → 6N 03-25 16:45
PROVIDERS: ADMIT Internal Medicine; ATTEND Internal Medicine
DX: I63.532 Cerebral infarction due to unspecified occlusion or stenosis of left posterior cerebral artery (principal); E43 Unspecified severe protein-calorie malnutrition; I48.20 Chronic atrial fibrillation, unspecified; N39.0 Urinary tract infection, site not specified; J44.0 Chronic obstructive pulmonary disease with (acute) lower respiratory infection; I69.354 Hemiplegia and hemiparesis following cerebral infarction affecting left non-dominant side; E11.649 Type 2 diabetes mellitus with hypoglycemia without coma; R13.10 Dysphagia, unspecified; R62.7 Adult failure to thrive; Z66 Do not resuscitate; Z20.822 Contact with and (suspected) exposure to COVID-19; I10 Essential (primary) hypertension; Z51.5 Encounter for palliative care; Z95.2 Presence of prosthetic heart valve; Z68.21 Body mass index [BMI] 21.0-21.9, adult; Z79.899 Other long term (current) drug therapy; Z83.3 Family history of diabetes mellitus; Z79.51 Long term (current) use of inhaled steroids; Z79.02 Long term (current) use of antithrombotics/antiplatelets; Z79.01 Long term (current) use of anticoagulants; Z88.5 Allergy status to narcotic agent; Z88.8 Allergy status to other drugs, medicaments and biological substances; F01.50 Vascular dementia, unspecified severity, without behavioral disturbance, psychotic disturbance, mood disturbance, and anxiety
CPT/HCPCS: 70496; 70498; 70551; 71045; 80053; 80061; 81001; 82948; 82962; 84132; 84484; 85025; 85610; 85730; 86850; 86900; 86901; 87081; 87086; 87186; 92526; 92610; 93005; 93306; 94640; 97162; 99291; C9113; J0696; J1630; J1650; J2185; J3480; J3535; J7040; J7050; Q9967; 36415-L1; 36415-TC; 70450; 70450-TC; J7613